=== PATIENT | female | born 1980 | race American Indian/Alaskan Native ===

== ENCOUNTER 2019-10-31 09:34 | Emergency (ER) | payer MEDICAID ==
[~2019-10-31] VITALS: Ht 175.3 cm; Wt 152.9 kg
[2019-10-31 09:43] VITALS: BP 121/71; Ht 175.3 cm; Wt 152.9 kg
== END 2019-10-31 12:25 | disposition home or self-care (01) ==
LOC: ED 09:34
DX: T78.40XA Allergy, unspecified, initial encounter (principal); Z88.0 Allergy status to penicillin; X58.XXXA Exposure to other specified factors, initial encounter
CPT/HCPCS: J1100; J1200

== ENCOUNTER 2019-11-21 02:34 | Emergency (ER) | payer MEDICAID ==
[~2019-11-21] VITALS: Ht 175.3 cm; Wt 154.2 kg
[2019-11-21 02:49] VITALS: Ht 175.3 cm; Wt 154.2 kg
[2019-11-21 05:00] VITALS: BP 110/73
== END 2019-11-21 05:10 | disposition home or self-care (01) ==
LOC: ED 02:34
DX: M91.12 Juvenile osteochondrosis of head of femur [Legg-Calve-Perthes], left leg (principal); M91.11 Juvenile osteochondrosis of head of femur [Legg-Calve-Perthes], right leg; Z98.890 Other specified postprocedural states; Z88.0 Allergy status to penicillin
CPT/HCPCS: J1885; Q0092

== ENCOUNTER 2020-02-04 17:02 | Emergency (ER) | payer MEDICAID ==
[~2020-02-04] VITALS: Ht 175.3 cm; Wt 139.7 kg
[2020-02-04 18:37] LABS: BASOPHIL % 0.4 % (0-2); PLATELET COUNT 282 x10^3mcL (130-400)
[2020-02-04 18:38] LABS: RED CELL DISTRIBUTION WIDTH 17.7 % (11.5-14.5)
[2020-02-04 18:56] LABS: CALCIUM 8.2 mg/dL (8.5-10.1); CHLORIDE SERUM 106 mmol/L (98-107); CREATININE SERUM 0.8 mg/dL (0.6-1.0); GFR1 > 60 mL/min; GLUCOSE SERUM 96 mg/dL (74-106); POTASSIUM SERUM 3.4 mmol/L (3.5-5.1); SODIUM SERUM 138 mmol/L (136-145)
[2020-02-04 19:00] LABS: ALKALINE PHOSPHATASE 86 U/L (46-116); ALT/SGPT 20 U/L (14-59); AMYLASE 48 U/L (25-115); AST/SGOT 17 U/L (15-37); BILIRUBIN TOTAL 0.24 mg/dL (0.20-1.00); LIPASE 75 IU/L (73-393); TOTAL PROTEIN, SERUM 6.4 g/dL (6.4-8.2)
[2020-02-04 19:03] LABS: ALBUMIN 2.9 g/dL (3.4-5.0)
[2020-02-04 23:16] VITALS: BP 138/83
== END 2020-02-04 23:50 | disposition short-term general hospital (02) ==
LOC: ED 17:02
PROVIDERS: Emergency Medicine
DX: R10.33 Periumbilical pain (principal); Z98.890 Other specified postprocedural states; Z88.0 Allergy status to penicillin
CPT/HCPCS: J0696; J2270; J2405; J2765; J3370; J7050; Q9967

== ENCOUNTER 2020-03-27 20:08 | Emergency (ER) | payer MEDICAID ==
[~2020-03-27] VITALS: Ht 177.8 cm; Wt 135.6 kg
[2020-03-27 20:46] VITALS: Ht 177.8 cm; Wt 135.6 kg
[2020-03-27 21:04] LABS: BASOPHIL % 1.5 % (0-2); PLATELET COUNT 261 x10^3mcL (130-400)
[2020-03-27 21:05] LABS: RED CELL DISTRIBUTION WIDTH 17.5 % (11.5-14.5)
[2020-03-27 21:15] LABS: CALCIUM 8.8 mg/dL (8.5-10.1); CARBON DIOXIDE 27.8 mmol/L (21-32); CHLORIDE SERUM 106 mmol/L (98-107); GFR1 > 60 mL/min; GLUCOSE SERUM 95 mg/dL (74-106); POTASSIUM SERUM 3.9 mmol/L (3.5-5.1); SODIUM SERUM 139 mmol/L (136-145)
[2020-03-27 21:21] LABS: ALKALINE PHOSPHATASE 79 U/L (46-116); ALT/SGPT 19 U/L (14-59); AST/SGOT 13 U/L (15-37); BILIRUBIN TOTAL 0.36 mg/dL (0.20-1.00); TOTAL PROTEIN, SERUM 7.4 g/dL (6.4-8.2)
[2020-03-27 21:24] LABS: ALBUMIN 3.3 g/dL (3.4-5.0)
[2020-03-28 06:10] VITALS: BP 104/77
== END 2020-03-28 06:10 | disposition home or self-care (01) ==
LOC: ED 20:08
DX: S20.212A Contusion of left front wall of thorax, initial encounter (principal); G89.29 Other chronic pain; R10.9 Unspecified abdominal pain; M79.89 Other specified soft tissue disorders; I10 Essential (primary) hypertension; X58.XXXA Exposure to other specified factors, initial encounter; Y93.89 Activity, other specified; Y92.89 Other specified places as the place of occurrence of the external cause; Y99.8 Other external cause status; Z88.0 Allergy status to penicillin
CPT/HCPCS: J2270; J2405; Q9967

== ENCOUNTER 2020-04-13 04:53 | Emergency (ER) | payer MEDICAID, SELFPAY ==
[~2020-04-13] VITALS: Ht 177.8 cm; Wt 133.5 kg
[2020-04-13 04:56] VITALS: Ht 177.8 cm; Wt 133.5 kg
[2020-04-13 05:53] VITALS: BP 126/81
== END 2020-04-13 05:53 | disposition home or self-care (01) ==
LOC: ED 04:53
DX: U07.1 COVID-19 (principal); B34.9 Viral infection, unspecified; I10 Essential (primary) hypertension; M25.512 Pain in left shoulder; Z86.2 Personal history of diseases of the blood and blood-forming organs and certain disorders involving the immune mechanism; Z88.0 Allergy status to penicillin; Z98.890 Other specified postprocedural states
CPT/HCPCS: J1885; U0003

== ENCOUNTER 2020-04-14 06:33 | Emergency (ER) | payer MEDICAID ==
[~2020-04-14] VITALS: Ht 177.8 cm; Wt 133.4 kg
[2020-04-14 06:55] VITALS: Ht 177.8 cm; Wt 133.4 kg
[2020-04-14 10:11] LABS: BASOPHIL % 0.5 % (0.2-1.3); PLATELET COUNT 235 x10^3mcL (179-408)
[2020-04-14 10:18] LABS: RED CELL DISTRIBUTION WIDTH 16.9 % (12.3-17.7)
[2020-04-14 10:25] LABS: CALCIUM 8.2 mg/dL (8.5-10.1); CARBON DIOXIDE 24.1 mmol/L (21-32); CHLORIDE SERUM 105 mmol/L (98-107); GFR1 > 60 mL/min; GLUCOSE SERUM 91 mg/dL (74-106); SODIUM SERUM 138 mmol/L (136-145)
[2020-04-14 10:30] LABS: ALKALINE PHOSPHATASE 81 U/L (46-116); ALT/SGPT 35 U/L (14-59); AST/SGOT 11 U/L (15-37); BILIRUBIN TOTAL 0.43 mg/dL (0.20-1.00); TOTAL PROTEIN, SERUM 7.1 g/dL (6.4-8.2)
[2020-04-14 10:33] LABS: ALBUMIN 3.1 g/dL (3.4-5.0)
[2020-04-14 10:54] LABS: microscopic required? NO
[2020-04-14 11:34] VITALS: BP 127/81
[2020-04-14 11:50] LABS: urine erythrocyte NEGATIVE (NEGATIVE)
== END 2020-04-14 11:34 | disposition home or self-care (01) ==
LOC: ED 06:33
PROVIDERS: Emergency Medicine
DX: U07.1 COVID-19 (principal)
CPT/HCPCS: 85378; 87804; J2270; J7030

== ENCOUNTER 2020-04-16 07:21 | Emergency (ER) | payer MEDICAID, SELFPAY ==
[~2020-04-16] VITALS: Ht 167.6 cm; Wt 133.4 kg
[2020-04-16 07:25] VITALS: Ht 167.6 cm; Wt 133.4 kg
[2020-04-16 08:10] VITALS: BP 138/87
== END 2020-04-16 08:10 | disposition home or self-care (01) ==
LOC: ED 07:21
DX: U07.1 COVID-19 (principal); I10 Essential (primary) hypertension; D64.9 Anemia, unspecified; Z90.89 Acquired absence of other organs; Z98.890 Other specified postprocedural states; Z88.0 Allergy status to penicillin
CPT/HCPCS: J1885

== ENCOUNTER 2020-05-30 00:02 | Emergency (ER) | payer MEDICAID ==
[~2020-05-30] VITALS: Ht 177.8 cm; Wt 134.7 kg
[2020-05-30 00:14] VITALS: Ht 177.8 cm; Wt 134.7 kg
[2020-05-30 01:17] LABS: PLATELET COUNT 315 x10^3mcL (179-408)
[2020-05-30 01:21] LABS: BASOPHIL % 2.4 % (0.2-1.3); RED CELL DISTRIBUTION WIDTH 16.6 % (12.3-17.7)
[2020-05-30 01:23] LABS: CALCIUM 8.7 mg/dL (8.5-10.1); CARBON DIOXIDE 25.8 mmol/L (21-32); CHLORIDE SERUM 105 mmol/L (98-107); GFR1 > 60 mL/min; GLUCOSE SERUM 93 mg/dL (74-106); SODIUM SERUM 138 mmol/L (136-145)
[2020-05-30 01:27] LABS: ALKALINE PHOSPHATASE 94 U/L (46-116); ALT/SGPT 22 U/L (14-59); AST/SGOT 12 U/L (15-37); BILIRUBIN TOTAL 0.26 mg/dL (0.20-1.00); LIPASE 112 IU/L (73-393); TOTAL PROTEIN, SERUM 7.2 g/dL (6.4-8.2)
[2020-05-30 01:32] LABS: ALBUMIN 3.2 g/dL (3.4-5.0)
[2020-05-30] MEDS ORDERED: NAPROXEN SODIU220 M1 PO (03:45)
[2020-05-30 04:01] VITALS: BP 132/76
== END 2020-05-30 04:01 | disposition home or self-care (01) ==
LOC: ED 00:02
PROVIDERS: Emergency Medicine
DX: R10.817 Generalized abdominal tenderness (principal); R11.10 Vomiting, unspecified; I10 Essential (primary) hypertension; Z98.890 Other specified postprocedural states; Z86.2 Personal history of diseases of the blood and blood-forming organs and certain disorders involving the immune mechanism; Z88.0 Allergy status to penicillin
CPT/HCPCS: J1885; J2270; J2405; Q9967

== ENCOUNTER 2020-06-10 21:14 | Emergency (ER) | payer MEDICAID ==
[~2020-06-10] VITALS: Ht 200.7 cm; Wt 135.6 kg
[~2020-06-10 21:14] MED LIST: NAPROXEN SODIU220 M1 PO
[2020-06-10 21:24] VITALS: Ht 200.7 cm; Wt 135.6 kg
[2020-06-11 02:36] VITALS: BP 118/79
== END 2020-06-11 02:36 | disposition home or self-care (01) ==
LOC: ED 21:14
DX: K43.9 Ventral hernia without obstruction or gangrene (principal); I10 Essential (primary) hypertension; Z88.0 Allergy status to penicillin; Z98.890 Other specified postprocedural states
CPT/HCPCS: J1885; J2270; Q0162